=== PATIENT | female | born 2005 | race Caucasian/White ===

== ENCOUNTER 2023-09-22 11:00 | Outpatient (REF) | payer BC, SELFPAY ==
--- NOTE | ~2023-09-22 | US_ITS ---
EXAMINATION: US PELVIS CLINICAL INFORMATION: Follow-up left ovarian cyst; the last menstrual period was in mid August 2023. COMPARISON: None presently available. TECHNIQUE: Ultrasound of the pelvis is performed using transabdominal technique. Transvaginal imaging is declined by the patient. FINDINGS: Uterus: The uterus is anteverted and measures 8.3 x 3.7 x 4.7 cm. The double wall endometrial thickness is 8 mm. The uterus is smooth in contour and has normal myometrial echogenicity. No visible fibroid. Adnexa: Both ovaries are visualized. There is normal color flow to the adnexa. There is no ovarian torsion. There is no pelvic ascites or fluid collection. Right ovary measures 3.4 x 3.9 x 2.5 cm, volume 17.5 mL. There are tiny physiologic follicles. Left ovary measures 3.7 x 2.5 x 3.4 cm, volume 16.6 mL. There are tiny physiologic follicles. US/US pelvic complete IMPRESSION: Unremarkable examination. No concerning ovarian cyst is presently identified.
== END 2023-09-22 11:01 | disposition home or self-care (01) ==
LOC: HO.UMASIMG 11:00
PROVIDERS: Visit Provider Family Medicine
DX: R10.9 Unspecified abdominal pain (principal); N83.292 Other ovarian cyst, left side
CPT/HCPCS: 76856